=== PATIENT | female | born 1940 | race Caucasian/White ===

== ENCOUNTER → 2016-07-28 | Outpatient (CLI) | payer MEDICARE ==
[~2016-07-28] MED LIST: ACET-685 PO; ALBU0.63 IH; ALBU8.5H3 IH; APIX5TAB PO; ASPI-484 PO; ASPI81TA9 PO; ATOR20TA PO; BUDE0.5A3 IH; BUDE10.2 IH; CARV3.12 PO; CLOP75TA PO; CLOP75TA22 PO; CYCL10TA2 PO; ESTR0.5T PO; HYDR-926 PO; ISOS30TA4 PO; LECI1200 PO; LEVA0.6320 NEB; LEVO112T5 PO; LISI-410 PO; METO25TA4 PO; Magnesium Oxide PO; NITR0.4T SL; OMEP20CA12 PO; PANT40TA3 PO; POTA10CA PO; RAMI2.5C28 PO; RANO500T2 PO; Ranolazine PO; SACU1TAB PO; SERT50TA PO; SPIR25TA PO; SUCR1TAB PO; SUCR1TAB27 PO; TEMA30CA6 PO; TORS20TA2 PO; TRAM-28 PO; VARE0.5T PO
== END | disposition home or self-care (01) ==
LOC: RT 14:54
PROVIDERS: ATTEND Specialist
DX: I50.22 Chronic systolic (congestive) heart failure (principal)
CPT/HCPCS: 93307

== ENCOUNTER → 2016-11-10 | Outpatient (CLI) | payer MEDICARE, MEDICAID ==
[~2016-11-10] VITALS: Ht 154.9 cm; Wt 71.7 kg
[~2016-11-10] MED LIST changes: +LEXISCAN IV ONE; +PULMICORT IH ONE; +XOPENEX IH ONE
--- NOTE | 2016-11-20 08:46 | STRESS ---
[facility] [employer] Female, 76 years old, CAD, post anterior wall NC, post bypass surgery, chronic systolic heart failure, COPD, 145 pounds, 6 feet 2 inches. Physical activity is inactive, inability to walk due to severe COPD. Twelve lead EKG shows regular sinus rhythm with anteroseptal NC changes with QS pattern V1 through V4 with nonspecific ST-T wave changes, resting heart rate 64. See the past list of medications on the chart. Her resting heart rate is 71, resting blood pressure 147/84. Lexiscan 0.4 mg IV was given over 15 seconds followed by 32.8 mGy of Cardiolite injection in the first 1 minute and resting images were obtained with 10.63 millicurie of Cardiolite. Patient tolerated the procedure well, had significant dyspnea, no chest pain. Abnormal myocardial perfusion scan but small apical hypoperfusion with moderate perfusion noted, improved perfusion compared to the previous scan. Septal perfusion appears to have improved, intact perfusion in the anterior wall, lateral and inferior wall with mild abnormal TID of 1.17 with improved LV wall contractility compared to the previous scan with an ejection fraction of 50%. [facility] therapy is advised. Delmi French M.D. VICENTE TD: 11/18/2016 12:46 MTDD
== END | disposition home or self-care (01) ==
LOC: RAD 08:52
PROVIDERS: ATTEND Specialist
DX: I25.10 Atherosclerotic heart disease of native coronary artery without angina pectoris (principal); I25.2 Old myocardial infarction; I20.9 Angina pectoris, unspecified; Z95.1 Presence of aortocoronary bypass graft
CPT/HCPCS: 78452; 93017; 94640; A9500; J7627; J2785